=== PATIENT | male | born 1990 | race Caucasian/White ===

== ENCOUNTER 2023-06-20 21:14 | Emergency (ER) | payer OTHER, SELFPAY ==
[2023-06-20 21:21] VITALS: BP 136/80; PULSE 72; RESP 14; TEMP 36.6; O2SAT 97; BMI 31.1
--- NOTE | 2023-06-21 00:28 | ED_ITS ---
HPI - Male Genitourinary General Chief complaint: Urogenital-Male Stated complaint: testicular and groin pain Time Seen by Provider: 06/21/23 00:10 Source: patient Mode of arrival: Ambulatory History of Present Illness HPI Narrative: 32-year-old male presents for bilateral testicular pain, right side worse than left. Patient states symptoms started several days ago after picking up his child. He has had chronic testicular pain that his urologist initially attributed to a bladder infection, however patient completed antibiotics and has not had any issues in a month. Denies difficulty urinating, history of STIs, concern for STIs, discharge from the penis. Concern for possible hernia. He states that he was close follow up with the use urologist and can call for an appointment if needed. Related Data Allergies Allergy/AdvReac Type Severity Reaction Status Date / Time No Known Drug Allergies Allergy Unverified 01/01/23 13:14 Review of Systems Review of Systems Narrative: Negative except as noted above Patient History Medical History (Updated 06/21/23 @ 00:30 by Eunice Erickson MD) Lower urinary tract symptoms Incomplete emptying of bladder Subacute prostatitis Prostatitis Testicular pain Hx of gastroesophageal reflux (GERD) Surgical History Hx of circumcision Hx of appendectomy Social History marital status: number of children: 1 occupational status: employed Smoking Status: Former smoker Tobacco: How many years used: 12 alcohol intake: never caffeine: Yes Type(s) of exercise: regular exercise frequency: 3-4 times per week duration: > 90 minutes/day Smoking Status: Former smoker Exam Initial Vital Signs Initial Vital Signs: Vital Signs Temperature 97.8 F 06/20/23 21:21 Pulse Rate 72 06/20/23 21:21 Respiratory Rate 14 06/20/23 21:21 Blood Pressure 136/80 06/20/23 21:21 Pulse Oximetry 97 06/20/23 21:21 Oxygen Delivery Method Room Air 06/20/23 21:21 Const: Awake, alert, no acute distress, nontoxic appearing GI: Atraumatic, soft, nontender, nondistended, no rebound, no guarding : Agents' Records Clerk present, testicles normal bilaterally, no significant reprod ucible tenderness to palpation, no inguinal hernias Skin: Warm, Dry, intact, no rashes Neuro: AO x3, CN II-XII grossly intact, moves all extremities Course Vital Signs Vital signs: Vital Signs - 8 hr 06/20/23 21:21 Temperature 97.8 F Pulse Rate 72 Respiratory Rate 14 Blood Pressure 136/80 Pulse Oximetry 97 Oxygen Delivery Method Room Air MDM - Male Genitourinary Differential Diagnosis Differential diagnosis: Likely urinary tract infection, priapism and urethritis MDM Narrative Medical decision making narrative: Bilateral testicular pain after lifting child at home. Normal external exam. Offered an ultrasound but patient declined stating that it was late, he had been in the emergency department for a long time, and he needed to go to work tomorrow. I offered a note for work but patient declines stating that he would to leave. He states that he will call his urologist tomorrow for an appointment and will follow up at that time. Discharge Plan Departure Patient Disposition: Home Clinical Impression: Testicular pain Instructions: DI for Testicular Pain Activity Restrictions/Additional Instructions: I did not feel any hernias today. Follow up urologist he continued to feel pain. Take Tylenol and Motrin as needed for pain, apply ice as needed for comfort. Referrals: ProviderFemi [Primary Care Provider] - Stand Alone Forms: Patient Portal/API
== END 2023-06-21 00:37 | disposition home or self-care (01) ==
PROVIDERS: Emergency Provider Emergency Medicine
DX: N50.812 Left testicular pain (principal); N50.811 Right testicular pain
CPT/HCPCS: 99281

== ENCOUNTER → 2023-06-22 12:52 | Outpatient (CLI) | payer OTHER, SELFPAY ==
[2023-06-22 13:06] LABS: Appearance Urine UA CLEAR; Bilirubin Urine UA NEGATIVE (NEGATIVE); Color Urine UA YELLOW; Glucose Urine UA NEGATIVE (Negative); Ketones Urine UA NEGATIVE (NEGATIVE); Leukocyte Esterase Urine UA NEGATIVE (NEGATIVE); Nitrite Urine UA NEGATIVE (Negative); Occult Blood Urine UA NEGATIVE (Negative); Protein Urine UA NEGATIVE (Negative); Urobilinogen Urine UA 0.2 E.U./dL (0.2)
[2023-06-22 13:54] LABS: Bacteria Urine None Seen; Culture Indicated Urine Cult Not Indicated; RBC Urine None Seen (0-5/HPF); Squamous Epithelial Cell Urine None Seen (0-5/HPF); Urine Volume 10mL (spun); WBC Urine None Seen (0-5/HPF)
== END ==
PROVIDERS: Referring Provider Urology; Visit Provider Urology
DX: N50.819 Testicular pain, unspecified (principal)
CPT/HCPCS: 81001

== ENCOUNTER → 2023-06-25 09:32 | Outpatient (CLI) | payer OTHER, SELFPAY ==
--- NOTE | 2023-06-25 09:33 | DI.US.S_ITS ---
PROCEDURE: US SCROTUM INDICATIONS: Testicular pain TECHNIQUE: Real-time scanning was performed of the scrotum and testicles, with image documentation. Color and pulse Doppler interrogation was performed of both testicles. COMPARISON: [facility], , US SCROTUM, 10/12/2022, 20:49. FINDINGS: Right: Testicle is normal in size at 4.6 x 2.3 x 3.2 cm, and homogenous in echotexture. Epididymis is normal in overall size and morphology. Small hydrocele. No varicoceles. Overlying scrotal skin is normal in thickness. Left: Testicle is normal in size at 4.7 x 2.3 x 3.0 cm, and homogeneous in echotexture. Epididymis is normal in overall size and morphology. No hydrocele or varicoceles. Overlying scrotal skin is normal in thickness. Doppler: Color and pulse Doppler demonstrate normal and symmetric arterial flow in both testicles. IMPRESSION: 1. No cause for patient's pain is identified. 2. Small right hydrocele. Otherwise, normal ultrasound examination. Dictated by: Migel Rivers M.D. on 06/25/2023 at 13:21 Approved by: Migel Rivers M.D. on 06/25/2023 at 13:22
== END ==
LOC: US 09:33
PROVIDERS: Referring Provider Urology; Visit Provider Urology
DX: N50.819 Testicular pain, unspecified (principal); N43.3 Hydrocele, unspecified
CPT/HCPCS: 76870; 93975